=== PATIENT | female | born 1975 | race Caucasian/White ===

== ENCOUNTER 2024-08-09 19:53 | Emergency (ER) | payer MEDICAID, OTHER ==
[~2024-08-09] VITALS: Ht 162.6 cm; Wt 67.0 kg
[~2024-08-09 19:53] MED LIST: ESCI-7 MT; PRAZ1CAP5 PO; QUET200T30 PO
[2024-08-09 20:02] VITALS: O2SAT 100
[2024-08-09 20:59] LABS: EOSINOPHILS % 2.3 % (0.0-5.0); HEMATOCRIT. 36.8 % (36.0-48.0); LYMPHOCYTES % 34.8 % (20.0-50.0); MEAN CORPUSCULAR HEMOGLOBIN 28.6 pg (28.0-32.0); MEAN CORPUSCULAR HGB CONC 32.7 g/dL (31.0-37.0); MEAN CORPUSCULAR VOLUME 87.5 fL (81.0-99.0); MONOCYTES % 9.1 % (2.0-8.0); NEUTROPHILS % 52.8 % (40.0-76.0); PLATELET 263 x1000/uL (130-400); RED BLOOD CELL COUNT 4.21 mill/uL (4.2-5.4); RED CELL DISTRIBUTION WIDTH 14.7 % (11.6-14.6); WHITE BLOOD COUNT 6.6 x1000/uL (4.5-11.0)
[2024-08-09 21:13] LABS: CHLORIDE 109 mEq/L (98-107); POTASSIUM 4.3 mEq/L (3.5-5.1); SODIUM 138 mEq/L (136-145)
[2024-08-09 21:14] LABS: CALCIUM 8.8 mg/dL (8.7-10.4); CARBON DIOXIDE 20 mEq/L (21-32)
[2024-08-09 21:19] LABS: CREATININE 0.6 mg/dL (0.6-1.0); GLUCOSE 87 mg/dL (70-105); UREA NITROGEN BLOOD 6 mg/dL (9-23)
[2024-08-09 21:21] LABS: ACETAMINOPHEN < 2 ug/mL (10-30)
[2024-08-09 21:22] LABS: HCG SCREEN NEGATIVE
[2024-08-09 21:24] LABS: ETHANOL BLOOD < 10 mg/dL (<10)
[2024-08-09 21:43] LABS: CLARITY URINE CLEAR (CLEAR); COLOR URINE YELLOW (YELLOW); GLUCOSE URINE NEGATIVE (NEGATIVE); KETONES URINE NEGATIVE (NEGATIVE); LEUKOCYTE ESTERASE URINE NEGATIVE (NEGATIVE); NITRITE URINE NEGATIVE (NEGATIVE); OCCULT BLOOD URINE NEGATIVE (NEGATIVE); PROTEIN URINE NEGATIVE (NEGATIVE); SPECIFIC GRAVITY URINE 1.007 (1.005-1.030); UROBILINOGEN URINE 0.2 E.U./dL (0.2-1.0)
[2024-08-09 21:50] LABS: *BARBITURATES SCREEN URINE NEGATIVE (NEGATIVE); *BENZODIAZEPINES SCREEN URINE NEGATIVE (NEGATIVE)
[2024-08-09 21:51] LABS: *COCAINE SCREEN URINE NEGATIVE (NEGATIVE); CANNABINOID URINE SCREEN NEGATIVE (NEGATIVE); ECSTASY MDMA SCREEN URINE NEGATIVE (NEGATIVE); METHADONE URINE SCREEN NEGATIVE (NEGATIVE); OPIATES URINE SCREEN NEGATIVE (NEGATIVE); PHENCYCLIDINE URINE SCREEN NEGATIVE (NEGATIVE)
[2024-08-09 21:54] LABS: *AMPHETAMINES SCREEN URINE NEGATIVE (NEGATIVE)
[2024-08-10] MEDS: ACETAMINOPHEN 325MG TABLET PO ONE ×2 (03:14→16:15)
[2024-08-11 06:04] VITALS: BP 116/64; PULSE 70; RESP 18; TEMP 36.55848; O2SAT 99
[2024-08-11 09:53] VITALS: TEMP 97.8
[2024-08-11] MEDS: ACETAMINOPHEN 325MG TABLET PO NR (09:53)
[2024-08-11] MEDS: ACETAMINOPHEN 325MG TABLET PO ONE (15:08)
[2024-08-11] MEDS ORDERED: QUETIAPINE FUMARATE 50MG TABLET PO SCH (21:00)
== END 2024-08-11 15:59 | disposition home or self-care (01) ==
LOC: ER 20:07
DX: R45.851 Suicidal ideations (principal); Z20.822 Contact with and (suspected) exposure to COVID-19; Z88.0 Allergy status to penicillin; Z90.49 Acquired absence of other specified parts of digestive tract; Z98.890 Other specified postprocedural states
CPT/HCPCS: 36415; 80048; 80305; 80307; 80320; 80329; 81003; 81025; 84703; 85025; 87426; 99285; G0480